=== PATIENT | male | born 1985 | race Caucasian/White ===

== ENCOUNTER 2018-05-17 14:03 | Emergency (ER) | payer SELFPAY ==
[2018-05-17] MEDS ORDERED: Lidocaine 1% 10 ML MDV INJECT ONE (14:41)
--- NOTE | 2018-05-17 14:45 | EDM.PDOC ---
ED HPI GENERAL MEDICAL PROBLEM - General Chief Complaint: Skin Complaint Stated Complaint: ABSCESS ON FOREARM Time Seen by Provider: 05/17/18 14:41 Source of Information: Reports: Patient History Limitations: Reports: No Limitations - History of Present Illness INITIAL COMMENTS - FREE TEXT/NARRATIVE: 33-year-old male presents to the ED with a painful swollen erythematous abscess forming on his extensor surface of left forearm. He does recall being poked by anything in this area. The areas become very warm swollen and painful over the last 12-14 hours. He noticed a bump there 2 days ago. He has no systemic signs of illness such as fever chills nausea vomiting. 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 05/17/18 [History] Doxycycline [Vibramycin] 100 mg PO BID #20 cap 05/17/18 [Rx] oxyCODONE HCl [Roxicodone] 5 mg PO Q4H #10 tablet 05/17/18 [Rx] Past Medical History Cardiovascular History: Reports: Hypertension Social & Family History - Recreational Drug Use Recreational Drug Use: No - Living Situation & Occupation Occupation: Employed ED ROS GENERAL - Review of Systems Review Of Systems: See Below Constitutional: Reports: No Symptoms HEENT: Reports: No Symptoms Respiratory: Reports: No Symptoms Cardiovascular: Reports: No Symptoms Endocrine: Reports: No Symptoms GI/Abdominal: Reports: No Symptoms : Reports: No Symptoms Musculoskeletal: Reports: Other (Painful swelling mid left extensor surface of forearm due to abscess formation) Skin: Reports: Rash Neurological: Reports: No Symptoms Psychiatric: Reports: No Symptoms Hematologic/Lymphatic: Reports: No Symptoms Immunologic: Reports: No Symptoms ED EXAM, SKIN/RASH Exam: See Below Exam Limited By: No Limitations General Appearance: Alert, WD/WN, No Apparent Distress, Other (He is afebrile vital signs are otherwise stable.) Extremities: Increased Warmth, Other (Examination was confined to his left forearm. Patient has a 2.5 cm angry erythematous swelling midshaft of the left forearm. It is sticking up about a centimeter from the skin. It is very painful. Suspect underlying abscess. Has a blackened central component to it almost like an insect sting. Doesn't remember being poked by anything.) Psychiatric: Normal Affect Skin: Erythema ( extensor surface of forearm), Increased Warmth, Other (Abscess 2.5 cm in diameter left mid) Course - Vital Signs Last Recorded V/S: Last Vital Signs Temp 36.5 C 05/17/18 14:17 Pulse 70 05/17/18 14:17 Resp 15 05/17/18 14:17 BP 143/88 H 05/17/18 14:17 Pulse Ox 99 05/17/18 14:17 - Orders/Labs/Meds Orders: Active Orders 24 hr Category Date Time Status CULTURE ANAEROBIC + SMEAR [RM] Stat Lab 05/17/18 15:14 Received CULTURE WOUND [RM] Stat Lab 05/17/18 15:14 Received Meds: Medications Discontinued Medications Generic Name Dose Route Start Last Admin Trade Name Bibi PRN Reason Stop Dose Admin Lidocaine HCl 10 ml 05/17/18 14:41 05/17/18 15:17 Xylocaine 1% INJECT 05/17/18 14:42 10 ml ONETIME ONE Administration - Radiology Interpretation Free Text/Narrative:: 33-year-old male presents to the ED with a painful raised erythematous swelling or abscess extensor surface of left mid forearm. Has popped up over the last 2 days and markedly worse over the last 12 hours. It is extremely tender to touch. It is protruding. Centimeter from the surrounding skin and I suspect there may be small amount of pus within the wound. Plan is to try and incise and drain it. - Re-Assessments/Exams Free Text/Narrative Re-Assessment/Exam: 05/17/18 15:20: I anesthetized the area with 1% lidocaine and I was able to remove the black core from the center of the lesion. However no pus was really obtained. Cultures were obtained. Treated with topical bacitracin and then will be placed on doxycycline 100 mg twice daily for the next 10 days to clear up infection. Suspect MRSA given a note to excuse him from work today. I did send him home with a few Roxicodone tablets as he is allergic to Tylenol. 10 tablets provided he will also use Motrin 600 mg every 6 hours. Departure - Departure Time of Disposition: 15:20 Disposition: Home, Self-Care 01 Condition: Fair Clinical Impression: Pyogenic skin abscess due to bacteria, Abscess - Discharge Information *PRESCRIPTION DRUG MONITORING PROGRAM REVIEWED*: Not Applicable *COPY OF PRESCRIPTION DRUG MONITORING REPORT IN PATIENT RASHIDA: Not Applicable Prescriptions: Doxycycline [Vibramycin] 100 mg PO BID #20 cap oxyCODONE HCl [Roxicodone] 5 mg PO Q4H #10 tablet Referrals: PCP,None [Primary Care Provider] - Forms: ED Department Discharge, ED Return to Work/School Form Additional Instructions: Evaluation the emergency room today in regards to development of a skin infection which we call him uncle on the extensor surface of your left forearm. This is always always caused by a staph aureus organism or bacteria. Attempts to open the abscess or pocket of pus did not produce any infection. Therefore it is likely MRSA for methicillin-resistant staph aureus infection. Treatment is doxycycline 100 mg twice daily for the next 10 days. Take 2 tablets the first dose with food. Pain medication --Roxicodone -as needed one or 2 tablets every 4-6 hours with Motrin 600 mg every 6 hours to reduce pain and inflammation. Expect marked improvement over the next 48-72 hours. Extra you finish all of her antibiotics as the infection will otherwise tend to come back right away. - My Orders Last 24 Hours: My Active Orders 05/17/18 15:14 CULTURE ANAEROBIC + SMEAR [RM] Stat CULTURE WOUND [RM] Stat - Assessment/Plan Last 24 Hours: My Active Orders 05/17/18 15:14 CULTURE ANAEROBIC + SMEAR [RM] Stat CULTURE WOUND [RM] Stat
== END 2018-05-17 15:35 | disposition home or self-care (01) ==
LOC: JD.ED 14:03
DX: L02.414 Cutaneous abscess of left upper limb (principal); B96.89 Other specified bacterial agents as the cause of diseases classified elsewhere; I10 Essential (primary) hypertension; Z88.8 Allergy status to other drugs, medicaments and biological substances
CPT/HCPCS: 10060; 87075; 87205; 99283; J2001; 87070